=== PATIENT | male | born 1995 | race African-American/Black ===

== ENCOUNTER 2025-03-02 13:31 | Emergency (ER) | payer OTHER ==
[~2025-03-02] VITALS: Ht 182.9 cm; Wt 84.1 kg
[2025-03-02 13:47] VITALS: BP 140/70; PULSE 45; RESP 16; TEMP 98.1; O2SAT 99
[2025-03-02] MEDS: ACETAMINOPHEN 500 MG TABLET PO ONE (14:09)
[2025-03-02] MEDS: KETOROLAC TROMETHAMINE 30 MG/ML VIAL IM ONE (14:09)
[2025-03-02] MEDS: LIDOCAINE 1% 10 ML VIAL ID ONE (14:40)
== END 2025-03-02 16:14 ==
LOC: EMS 13:34
DX: S63.286A Dislocation of proximal interphalangeal joint of right little finger, initial encounter (principal); X58.XXXA Exposure to other specified factors, initial encounter; Y93.67 Activity, basketball; Y92.89 Other specified places as the place of occurrence of the external cause; Y99.8 Other external cause status
CPT/HCPCS: 99284; 26770; 73140; 96372; J1885; J3490